=== PATIENT | female | born 1985 | race Caucasian/White ===

== ENCOUNTER 2019-04-06 11:25 | Outpatient (REF) | payer OTHER, SELFPAY ==
--- NOTE | 2019-04-06 09:30 | PAPFT_PTH ---
PATIENT: Crys Vigil LOC: [facility] U#:[id number] AGE/SX: 33/F ROOM: RE04/06/[address]: Frank Ozuna : 1985 BED: DIS: 04/06/2019 SPEC #: [id number] RECD: 04/07/19 12:45 STATUS: JESUS REQ #: [id number] SYDNEE: 04/06/19 09:[address]: Frank Ozuna DEPT: [facility] Cytology RECD BY: Sharita Spaulding Tissues: 1 - CX/ENDOCX FOR PAP SMEARS Procedures: PAP THIN PREP/[facility] Screening HPV DNA PROBE Comments: [id number]
== END 2019-04-06 11:45 ==
LOC: NCHCN 11:25
PROVIDERS: PCP Family Medicine; Visit Provider Family Medicine
DX: Z00.00 Encounter for general adult medical examination without abnormal findings (principal); Z12.4 Encounter for screening for malignant neoplasm of cervix; Z11.51 Encounter for screening for human papillomavirus (HPV)
CPT/HCPCS: 88142; 87624

== ENCOUNTER 2022-08-27 12:39 | Outpatient (REF) | payer OTHER, SELFPAY | END 2022-08-27 12:40 | disposition home or self-care (01) | LOC: NCHCN 12:39 | PROVIDERS: PCP Family Medicine; Visit Provider Family Medicine | DX: N89.8 Other specified noninflammatory disorders of vagina (principal) | CPT/HCPCS: 87480; 87510; 87660 ==

== ENCOUNTER 2022-11-05 12:34 | Outpatient (REF) | payer OTHER, SELFPAY ==
[2022-11-06 15:10] LABS: Chlamydia Result Negative (Negative); GC Result Negative (Negative)
== END 2022-11-05 12:35 | disposition home or self-care (01) ==
LOC: NCHCN 12:34
PROVIDERS: PCP Family Medicine; Visit Provider Family Medicine
DX: N89.8 Other specified noninflammatory disorders of vagina (principal)
CPT/HCPCS: 87491; 87591; 87070; 87205

== ENCOUNTER 2023-08-29 12:07 | Outpatient (REF) | payer OTHER, SELFPAY ==
--- NOTE | 2023-08-29 09:45 | PAPFT_PTH ---
PATIENT: Crys Vigil [facility] U#:[id number] AGE/SX: 38/F ROOM: RE08/29/[address]: Frank Ozuna : 1985 BED: DIS: 08/29/2023 SPEC #: [id number] RECD: 09/01/23 17:58 STATUS: JESUS REQ #: [id number] SYDNEE: 08/29/23 09:[address]: Frank Ozuna DEPT: [facility] Cytology RECD BY: Sharita Spaulding Tissues: 1 - CX/ENDOCX FOR PAP SMEARS Procedures: PAP THIN PREP/[facility] Screening HPV DNA PROBE Comments: [id number]
== END 2023-08-29 12:08 | disposition home or self-care (01) ==
LOC: NCHCN 12:07
PROVIDERS: PCP Family Medicine; Visit Provider Family Medicine
DX: Z12.4 Encounter for screening for malignant neoplasm of cervix (principal)
CPT/HCPCS: 88142; 87624